=== PATIENT | female | born 1930 | race Caucasian/White ===

== ENCOUNTER → 2016-10-24 | Outpatient (CLI) | payer MEDICARE, OTHER ==
[~2016-10-24] MED LIST: ASPIRIN81 M1 PO; DIOVAN80 M1 PO; GLUCOTROL5 MG PO; IRON325 M1 PO; LASIX20 MG PO; LIPITOR40 MG PO; LOPRESSOR25 MG PO; NEXIUM20 M1 PO
--- NOTE | ~2016-10-24 | ST ---
[place], [place] EXERCISE STRESS TEST REPORT [id number] UN[facility] #: [id number] ROOM: DOCTOR: LILLY CEEDÑO MD BIRTHDATE: [birth year] DOS: 10/24/2016 PHARMACOLOGIC STRESS TEST: REASON: Chest discomfort. PROCEDURE: The patient received a rapid infusion of regadenoson 0.4 mg intravenously, followed by a saline flush. She felt mildly short of breath, but had no other symptoms. The resting electrocardiogram showed possible left ventricular hypertrophy by voltage criteria, but no other acute changes. No changes occurred with the infusion. 40 seconds after the infusion, she was given radionuclide intravenously. IMPRESSION: 1. Well tolerated infusion of regadenoson. 2. Radionuclide injected. Please see the separate imaging report for further details of the patient's stress test results. LILLY CEDEÑO MD CM:STRESS:EXERCISE STRESS TEST REPORT [id number] LILLY CEDEÑO MD
--- NOTE | 2016-10-24 10:11 | NUR ---
INFORMED SIGNED CONSENT OBTAINED FOR LEXISCAN STRESS TEST WITH DR CEDEÑO RESTING EKG NSR HR 71 BP 154/62, PULSE OX 96% LUNGS CLEAR. PT COMPLETED ONE MINUTE OF A LEXISCAN PROTOCOL WITH PT RECEIVING LEXISCAN 0.4MG IV OVER 10 SECONDS. NO ARRHYTHMIAS OR ST CHANGES NOTED. PT HAD SOB WITH INFUSION. LAST RECOVERY HR OF 79 BP 156/70. PT IN STABLE CONDITION, AWAITING NUCLEAR IMAGES.
== END | disposition home or self-care (01) ==
LOC: CARD 00:14 → EDBD 08:30 → CARD 08:30
DX: I08.1 Rheumatic disorders of both mitral and tricuspid valves (principal); I25.10 Atherosclerotic heart disease of native coronary artery without angina pectoris; R01.1 Cardiac murmur, unspecified

== ENCOUNTER → 2016-12-03 | Outpatient (CLI) | payer MEDICARE, OTHER | END | disposition home or self-care (01) | LOC: MAMMO 10:48 | DX: C50.912 Malignant neoplasm of unspecified site of left female breast (principal) ==

== ENCOUNTER 2017-05-17 10:33 | Emergency (ER) | payer MEDICARE, OTHER ==
[~2017-05-17] VITALS: Ht 157.4 cm; Wt 75.7 kg
[2017-05-17 11:01] LABS: BASO % 0.4 % (0.0-1.0); EOS # 0.3 10*3/uL (0.0-0.4); EOS % 3.6 % (1.0-4.0); HEMATOCRIT 34.7 % (37.0-47.0); HEMOGLOBIN 10.9 g/dl (12.0-16.0); LYMPH % 11.3 % (27.0-41.0); MEAN CORPUSCULAR HGB 29.5 pg (27.0-31.0); MEAN CORPUSCULAR HGB CONC 31.4 g/dl (33.0-37.0); MEAN PLATELET VOLUME 10.1 fl (9.6-12.3); MONO # 0.6 10*3/uL (0.1-1.0); MONO % 6.4 % (3.0-9.0); NEUT # 6.7 10*3/uL (2.3-7.9); NEUT % 77.8 % (47.0-73.0); PLATELET COUNT AUTOMATED 176 10*3/uL (130-400); RED BLOOD COUNT 3.69 10*6/uL (4.10-5.10); WHITE BLOOD COUNT 8.6 10*3/uL (4.8-10.8)
[2017-05-17 11:21] LABS: ALBUMIN 3.2 gm/dl (3.1-4.5); ALKALINE PHOSPHATASE 106 U/L (45-117); BUN 29 mg/dl (7-24); CHLORIDE 107 mmol/L (98-107); CREATININE 2.04 mg/dL (0.55-1.02); POTASSIUM 5.5 mmol/L (3.5-5.1); SGOT/AST 13 IU/L (3-35); SGPT/ALT 15 U/L (12-78); SODIUM 139 mmol/L (136-145); TOTAL PROTEIN 7.2 gm/dL (6.4-8.2)
[2017-05-17 11:25] LABS: TROPONIN I < 0.015 ng/ml (<0.045)
[2017-05-17] MEDS ORDERED: ZITHROMAX250 MG PO (11:57)
[2017-05-17] MEDS ORDERED: PROVENTIL HFA6.7 GM INH (11:57)
[2017-05-17] MEDS ORDERED: MEDROL DOSEPAK4 MG PO (12:31)
== END 2017-05-17 11:57 | disposition home or self-care (01) ==
LOC: ED 10:33
PROVIDERS: Emergency Medicine
DX: J20.9 Acute bronchitis, unspecified (principal); F10.10 Alcohol abuse, uncomplicated; Z79.82 Long term (current) use of aspirin; Z79.899 Other long term (current) drug therapy; Z90.710 Acquired absence of both cervix and uterus

== ENCOUNTER 2017-11-06 09:30 | Inpatient (IN) | payer MEDICARE, OTHER ==
[2017-11-06] VITALS (15 sets, daily range): BP systolic 170–254; BP diastolic 70–106
[~2017-11-06] VITALS: Ht 154.9 cm; Wt 74.6 kg
--- NOTE | ~2017-11-06 | O ---
[place], [place] OPERATIVE NOTE NAME: ROSELIA HUGHES UNIT #: [id number] ROOM: [facility] DOCTOR: WILFREDO KASPER,OSKAR BIRTHDATE: [birth year] DOS: 11/06/2017 HISTORY OF PRESENT ILLNESS: This is an 87-year-old patient was presented with esophageal foreign body that she has endured yesterday when she tried to eat hamburgers and subsequently followed with pieces of steak and since then she has had difficulty with swallowing. She comes to the Emergency Room [facility]. She was brought to the operating room, intubated. REPORT: After putting the patient in left lateral position and application of lubricant to the scope, the scope was introduced; thereafter, under direct visualization, advanced through the length of the upper esophagus. As I approached the mid esophagus, there is an impaction of the esophagus with foreign body and free particles as well as solid particles. The existing foreign body appears to be meat products and does not respond to manipulation, we do not have the appropriate instruments to address after multiple tries which manipulated the foreign body as well as some fractures, some pieces of it. However, since it appears to be a long segment for the safety of the patient and not having backup thoracic surgery available the patient extubated, tolerated the procedure well. IMPRESSION: Impacted long segment of the meat products since yesterday. PLAN AND DISCUSSION: We are going to make arrangement for transfer of the patient for [facility] if family agrees. Thank you very much indeed. OSKAR VILLALOBOS MD CM:OPRECORD:OPERATIVE NOTE [id number] OSKAR VILLALOBOS MD 11/27/17 0937 interface
[~2017-11-06 09:30] MED LIST changes: +MEDROL DOSEPAK4 MG PO; +PROVENTIL HFA6.7 GM INH; +ZITHROMAX250 MG PO
[2017-11-06 09:44] LABS: BASO # 0.1 10*3/uL (0.0-0.1); BASO % 0.8 % (0.0-1.0); EOS # 0.3 10*3/uL (0.0-0.4); HEMATOCRIT 34.9 % (37.0-47.0); HEMOGLOBIN 11.2 g/dl (12.0-16.0); LYMPH # 1.3 10*3/uL (1.3-4.4); LYMPH % 15.4 % (27.0-41.0); MEAN CELL VOLUME 91.8 fl (81.0-99.0); MEAN CORPUSCULAR HGB 29.5 pg (27.0-31.0); MEAN CORPUSCULAR HGB CONC 32.1 g/dl (33.0-37.0); MONO # 0.8 10*3/uL (0.1-1.0); MONO % 9.3 % (3.0-9.0); NEUT # 5.9 10*3/uL (2.3-7.9); PLATELET COUNT AUTOMATED 213 10*3/uL (130-400); RED CELL DISTRI WIDTH 13.2 % (0-14.5); WHITE BLOOD COUNT 8.3 10*3/uL (4.8-10.8)
[2017-11-06 09:59] LABS: ALBUMIN 3.6 gm/dl (3.1-4.5); CREATININE 1.91 mg/dL (0.55-1.02); POTASSIUM 4.4 mmol/L (3.5-5.1); TOTAL PROTEIN 7.8 gm/dL (6.4-8.2)
[2017-11-06] MEDS ORDERED: ZANTAC 150150 MG PO (12:20)
[2017-11-06] MEDS ORDERED: MIACALCIN200 UNIT/1 IJ (12:21)
[2017-11-06 16:44] LABS: ABG BASE EXCESS -2.8 mmol/L (-2.0-2.0); ARTERIAL BLOOD GAS PCO2 29.2 mmHg (35-45); ARTERIAL BLOOD GAS PH 7.448 (7.35-7.45)
== END 2017-11-06 22:30 | disposition short-term general hospital (02) | DRG 393 ==
LOC: ED 09:30 → ICCU 11:13 → EDHOLD 11:13 → 4E 11:14 → ICCU 16:11
PROVIDERS: Internal Medicine; Nurse Practitioner Family
PROC: 0DJ08ZZ Inspection of Upper Intestinal Tract, Via Natural or Artificial Opening Endoscopic (ICD-10-PCS; principal; 2017-11-06)
DX: T18.128A Food in esophagus causing other injury, initial encounter (principal); N17.0 Acute kidney failure with tubular necrosis; I16.1 Hypertensive emergency; K22.2 Esophageal obstruction; I10 Essential (primary) hypertension; E11.65 Type 2 diabetes mellitus with hyperglycemia; D64.9 Anemia, unspecified; K21.9 Gastro-esophageal reflux disease without esophagitis; X58.XXXA Exposure to other specified factors, initial encounter; K44.9 Diaphragmatic hernia without obstruction or gangrene; Z79.899 Other long term (current) drug therapy; Z90.710 Acquired absence of both cervix and uterus; Z90.12 Acquired absence of left breast and nipple; Z90.49 Acquired absence of other specified parts of digestive tract; Z90.5 Acquired absence of kidney; Z82.3 Family history of stroke; Z82.49 Family history of ischemic heart disease and other diseases of the circulatory system; Z92.21 Personal history of antineoplastic chemotherapy; Z92.3 Personal history of irradiation; Z85.3 Personal history of malignant neoplasm of breast; Z87.891 Personal history of nicotine dependence; Y93.89 Activity, other specified; Y92.89 Other specified places as the place of occurrence of the external cause; Y99.8 Other external cause status

== ENCOUNTER → 2017-11-25 | Outpatient (CLI) | payer MEDICARE, OTHER ==
[~2017-11-25] MED LIST changes: +MIACALCIN200 UNIT/1 IJ; +ZANTAC 150150 MG PO
== END | disposition home or self-care (01) ==
LOC: MAMMO 08:20
DX: R92.2 Inconclusive mammogram (principal); Z85.3 Personal history of malignant neoplasm of breast